=== PATIENT | male | born 1985 | race Caucasian/White ===

== ENCOUNTER 2017-02-04 20:53 | Inpatient (IN) | payer BC ==
--- NOTE | ~2017-02-04 | OP ---
Record Of Operation [facility] [address] [place]. [address] NAME: CAROLINA SALINAS : 85 STATUS : ADM IN PAT#: [id number] AGE: 31 ADM/REG DATE : 02/04/17 MR#: [id number] REPORT SERV DATE: 02/05/17 DICTATED BY: ABHIJIT MILTON DATE: 02/05/17 REPORT STATUS : Draft TRANSCRIBED BY: MODL DATE: 02/05/17 DATE OF PROCEDURE: 02/05/2017 PREOPERATIVE DIAGNOSIS: Left tibia fracture. POSTOPERATIVE DIAGNOSIS: Left tibia fracture. PROCEDURE: Open treatment of left tibia fracture with intramedullary nail. SURGEON: Abhijit Milton MD. ANESTHESIA: General. ESTIMATED BLOOD LOSS: Minimal. IMPLANTS: Tibia nail, [place] 345 x10, 4 interlock screws. ANTIBIOTICS: Ancef was given prior to incision. HISTORY: The patient is a 31-year-old gentleman with a history of fall yesterday at home. He sustained a left tibia fracture, was confirmed on x-rays at the emergency department. He was then admitted and then we discussed the risks and benefits of surgery and nonoperative treatment with him. He elected for surgery. We discussed the risks including cardiopulmonary complication, anesthesia, damage to surrounding tissues, infection, malunion, nonunion, failure of implants. I have discussed those risks and he elected to proceed. OPERATIVE NOTE: The patient was seen in the preoperative area, consented, and marked. We answered all of his questions he had to his satisfaction. He was taken to the operating suite and placed in supine position, underwent general anesthesia. We prepped and draped the left leg in sterile fashion, then paused to perform a time-out confirming the correct patient, procedure, diagnosis, and extremity. We made an incision directly over the knee just medial to the patellar tendon, dissected down and incised the retinaculum just medial to the patellar tendon. I then used a guide pin to get a starting point, AP and lateral planes as confirmed on x-ray. I then advanced the guidepin and then reamed over that guidepin. I then placed a long guidewire into the tibia, advanced it down to the fracture site, reduced the fracture and then passed it across. I then used reamers and reamed up to size 11 and then placed a 10 mm nail, measured it to be a 345 mm in length. So we placed a 10 x 345 mm nail. Holding reduction, we placed 2 locking screws distally and then 2 locking screws proximally with fluoroscopic guidance. Throughout the process I checked the fracture site with AP and lateral x-rays. When that was completed, I took my final x-rays. We irrigated all the wounds, closed the wounds. He was then placed in a sterile dressing. He was awakened with no complications, taken to PACU in stable condition. Record Of Operation [place] [address] [facility] [place]. [address] NAME: CAROLINA SALINAS : 85 STATUS : ADM IN [facility]#: [id number] AGE: 31 ADM/REG DATE : 02/04/17 MR#: [id number] REPORT SERV DATE: 02/05/17 DICTATED BY: ABHIJIT MILTON DATE: 02/05/17 REPORT STATUS : Draft TRANSCRIBED BY: MARY BETH DATE: 02/05/17 POSTOP PLAN: He will be admitted to the floor for observation and physical therapy. [facility]/MARY BETH Abhijit Milton MD / [id number] CC: MD Agustín Palomares Jr. D.OGeoff
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
[~2017-02-04 20:53] MED LIST: ADDER10 PO; TAMIFLU PO
[2017-02-06 04:17] LABS: HEMATOCRIT 34.7 % (40.0-51.0)
[2017-02-06 04:27] LABS: BUN (BLOOD UREA NITROGEN) 11 MG/DL (6-23); CALCIUM, SERUM 8.2 MG/DL (8.5-10.4); CHLORIDE, SERUM 107 MMOL/L (96-112); CO2 (CARBON DIOXIDE) 29 MMOL/L (24-34); CREATININE 0.84 MG/DL (0.70-1.30); GFR AFRICAN AMERICAN 135 ML/MIN (>=60); GFR NON AFRICAN AMERICAN 117 ML/MIN (>=60); GLUCOSE, SERUM 108 MG/DL (60-99); POTASSIUM, SERUM 4.3 MMOL/L (3.5-5.3); SODIUM, SERUM 143 MMOL/L (135-148)
[2017-02-06] MEDS ORDERED: PCET PO (13:50)
[2017-02-06] MEDS ORDERED: LOVENOX40 SC (13:50)
== END 2017-02-06 16:25 | disposition home or self-care (01) | DRG 494 ==
LOC: 3SO 20:53
PROVIDERS: Orthopaedic Surgery Sports Medicine
PROC: 0QSH04Z Reposition Left Tibia with Internal Fixation Device, Open Approach (ICD-10-PCS; principal; 2017-02-04)
DX: S82.202A Unspecified fracture of shaft of left tibia, initial encounter for closed fracture (principal); W18.30XA Fall on same level, unspecified, initial encounter
CPT/HCPCS: 80048; 85014; 85018; 97161-GP; 97165-GO; A9270-GY; C1713; C1769; J0690; J1170; J2250; J2405; J2710; J3010